=== PATIENT | male | born 1955 | race Caucasian/White ===

== ENCOUNTER 2017-12-21 09:02 | Emergency (ER) | payer MEDICAID | END 2017-12-21 11:02 | disposition home or self-care (01) | LOC: FTE 09:02 | DX: L29.9 Pruritus, unspecified (principal); I10 Essential (primary) hypertension; Z79.82 Long term (current) use of aspirin; Z87.891 Personal history of nicotine dependence | CPT/HCPCS: 99283; Z7502 ==